=== PATIENT | male | born 2000 | race Two or more races ===

== ENCOUNTER 2024-12-10 18:30 | Emergency (ER) | payer BC, OTHER ==
[~2024-12-10] VITALS: Ht 167.6 cm; Wt 75.0 kg
[2024-12-10] MEDS: KETOROLAC TROMETH 60MG/2ML VIAL IM ONE (18:45)
[2024-12-10] MEDS: HYDROcodone-ACET 10/325MG TAB PO ONE (18:45)
--- NOTE | 2024-12-10 19:18 | DVH ---
XY CHEST TWO VIEWS ROUTINE CLINICAL HISTORY: Fall/trauma COMPARISON: None TECHNIQUE: Frontal and lateral view of the chest was obtained FINDINGS: Lines and Tubes: None Lungs: No focal consolidation. Pleura: No effusion. No pneumothorax. Cardiomediastinal contours: Unremarkable Bones: No acute osseous abnormality. IMPRESSION: 1. No acute cardiopulmonary disease.
--- NOTE | 2024-12-10 19:25 | DVH ---
CLINICAL INDICATION: Fall/trauma TECHNIQUE: 2 radiographic views of the spine were obtained. Comparison: None FINDINGS/IMPRESSION: Rib-bearing thoracic type vertebrae. Normal alignment of the thoracic spine. Anterior wedge deformity with mild [id number] loss of vertebral body heights of T4 and T5 and mild loss of vertebral isaiah dy height of T 11 of unknown chronicity. MRI would be helpful to determine chronicity.
[2024-12-10] MEDS ORDERED: IBUP-1455 PO (19:40)
[2024-12-10] MEDS ORDERED: HYDR-4798 PO (19:40)
--- NOTE | 2024-12-10 19:41 | ED.PDOC ---
Stephanie. trauma (HPI) HPI Comments This patient is an otherwise healthy 24-year-old male who arrives the ED today for evaluation of back pain status post fall off of ladder proximally 1/2 hour prior to arrival. Patient states he was going down a ladder when he missed a step and fell approximately 5 ft, landing on his mid back. Patient arrives with the complaints of central and mid back pain as well as chest pain concerns. Patient denies any head trauma or blood loss. Vital signs were stable on arrival. Chief Complaint: Fall Injury Time Seen by MD: 18:36 Reviewed notes: Nurses Notes Allergies: Coded Allergies: NO KNOWN ALLERGIES (Unverified , 12/10/24) Information Source: Patient, Spouse Mode of Arrival: Ambulatory Severity: Moderate Timing: Minutes Duration: Since onset Prehospital treatment: None Location: Back, Chest Location of laceration: None Mechanism: Fall Past Medical History PAST MEDICAL HISTORY: Denies Surgical History: Denies all surgeries Family History Family History: Reviewed,noncontributory to illness, No family hx of Cancer, No family hx of DM, No family hx of Heart dorina, No family hx of HTN, No family hx ofKidney dorina, No family hx of Liver dorina, No family hx of Lung dorina, No family hx of Stroke Social History Smoker: Non-Smoker Alcohol: Occasionally Drugs: Denies Drug Use Lives In: Home Constitutional: denies: chills, diaphoresis, fatigue, fever, malaise, sweats, weakness, others EENTM: denies: blurred vision, double vision, ear bleeding, ear discharge, ear drainage, ear pain, ear ringing, eye pain, eye redness, hearing loss, mouth pain, mouth swelling, nasal discharge, nose bleeding, nose congestion, nose pain, photophobia, tearing, throat pain, throat swelling, voice changes, others Respiratory: denies: cough, hemoptysis, orthopnea, SOB at rest, shortness of breath, SOB with excertion, stridor, wheezing, others Cardiovascular: reports: chest pain (Musculoskeletal); denies: dizzy spells, diaphoresis, Dyspnea on exertion, edema, irregular heart beat, left arm pain, lightheadedness, palpitations, PND, syncope, others Gastrointestinal: denies: abdomen distended, abdominal pain, blood streaked bowels, constipated, diarrhea, dysphagia, difficulty swallowing, hematemesis, melena, nausea, poor appetite, poor fluid intake, rectal bleeding, rectal pain, vomiting, others Genitourinary: denies: burning, dysuria, flank pain, frequency, hematuria, incontinence, penile discharge, penile sore, pain, testicle pain, testicle swelling, urgency, others Neurological: denies: dizziness, fainting, headache, left sided numbness, left sided weakness, numbness, paresthesia, pre-existing deficit, right sided numbness, right sided weakness, seizure, speech problems, tingling, tremors, weakness, others Musculoskeletal: reports: back pain; denies: gout, joint pain, joint swelling, muscle pain, muscle stiffness, neck pain, others Integumetry: denies: bruises, change in color, change in hair/nails, dryness, laceration, lesions, lumps, rash, wounds, others Allergic/Immunocompromised: denies: Difficulty Healing, Frequent Infections, Hives, Itching, others Hematologic/Lymphatic: denies: anemia, blood clots, easy bleeding, easy bruising, swollen glands, others Endocrine: denies: excessive hunger, excessive sweating, excessive thirst, excessive urination, flushing, intolerance to cold, intolerance to heat, unexplained weight gain, unexplained weight loss, others Psychiatric: denies: anxiety, bipolar disorder, depression, hopeless, panic disorder, schizophrenia, sleepless, suicidal, others Physical Exam General Appearance: Moderate Distress (Due to back and chest pain concerns.), Normal HEENT: Normal ENT Inspection, Pharynx Normal, TMs Normal Neck: Full Range of Motion, Non-Tender, Normal, Normal Inspection Respiratory: Lungs Clear, No Accessory Muscle Use, No Respiratory Distress, Normal Breath Sounds, Other (Unable to elicit any additional pain on palpation. Patient complained of sternal and bilateral rib pain throughout. No crepitus. No ecchymosis.) Cardiovascular: No Edema, No JVD, No Murmur, No Gallop, Normal Peripheral Pulses, Regular Rate/Rhythm Breast Exam: Deferred Gastrointestinal: No Organomegaly, Non Tender, No Pulsatile Mass, Normal Bowel Sounds, Soft Genitalia: Deferred Pelvic: Deferred Rectal: Deferred Extremities: No calf tenderness, Normal capillary refill, Normal inspection, Normal range of motion, Non-tender, No pedal edema Musculoskeletal : Location: Bilateral Extremity Location: Back (Diffuse tenderness to palpation bilaterally in her around T3 through he 11. Possible mild ecchymosis on right lateral aspect. No crepitus appreciated. No step-offs noted.) Apperance: Normal Neurologic: Alert, No Motor Deficits, Normal Affect, Normal Mood, No Sensory Deficits Cerebellar Function: Normal Reflexes: Normal Skin: Dry, Normal Color, Warm Lymphatic: No Adenopathy Was a procedure done? Was a procedure done?: No Differential Diagnosis Multiple Trauma: Other (Thoracic vertebrae fracture, back contusion, rib fracture, chest contusion) X-Ray, Labs, Meds, VS Vital Signs Date Time Temp Pulse Resp B/P (MAP) Pulse Ox O2 Delivery O2 Flow Rate FiO2 12/10/24 18:32 98.5 108 18 118/75 95 98.5 X-Ray, Labs, Meds, VS Comment All studies performed the ED were evaluated by me personally. Imaging studies of the thoracic spine and chest were unremarkable for any acute fractures. Patient appears to have sustained some contusions related to his follow up. Advised pain medication as needed as well as ice therapy. Time of 1ST Reevaluation: 19:38 Reevaluation 1ST: Improved Consultation: PCP Patient Education/Counseling: Diagnosis, Treatment Family Education/Counseling: Diagnosis, Treatment Departure 1 Departure Time of Disposition: 19:38 Impression: Primary Impression: Back contusion Disposition: HOME / SELF CARE / HOMELESS Condition: Stable Additional Instructions: Advised pain medication as needed as well as ice therapy. e-Prescriptions Hydrocodone-Acetaminophen (Hydrocodone Bitartrate/AC 10-325 mg) 1 Tab Tab 1 TAB PO Q8HP PRN, #12 TAB Prov: MILTON CHRISTIANSON PAC 12/10/24 Ibuprofen Micronized (Ibuprofen) 800 Mg Tab 800 MG PO Q8HP PRN, #20 TAB Prov: MILTON CHRISTIANSON PAC 12/10/24 Discharged With: Self, Spouse Critical Care Note Critical Care Time?: No Stability Stability form required: No Heart Score Heart Score: Heart Score Response (Comments) Value History N/A 0 EKG N/A 0 Age N/A 0 Risk Factors N/A 0 Troponin N/A 0 Total 0 MILTON CHRISTIANSON PAC Dec 10, 2024 19:41
[2024-12-10 20:49] VITALS: BP 129/79; PULSE 87; RESP 18; TEMP 97.9; O2SAT 98
== END 2024-12-10 20:52 | disposition home or self-care (01) ==
LOC: ER 18:30
DX: S20.213A Contusion of bilateral front wall of thorax, initial encounter (principal); W11.XXXA Fall on and from ladder, initial encounter; Y93.89 Activity, other specified; Y92.89 Other specified places as the place of occurrence of the external cause; Y99.8 Other external cause status
CPT/HCPCS: 71046; 72070; 96372; 99284; J1885